=== PATIENT | male | born 1955 | race Caucasian/White ===

== ENCOUNTER → 2017-11-25 | Outpatient (CLI) | payer OTHER ==
--- NOTE | 2017-11-25 15:40 | BD ---
EXAMINATION TYPE: MG DEXA axial skeleton. DATE OF EXAM: 11/25/2017 COMPARISON: NONE CLINICAL HISTORY: disorder of bone Height: 5'8 Weight: 208 FRAX RISK QUESTIONS: Alcohol (3 or more units per day): no Family History (Parent hip fracture): no Glucocorticoids (More than 3mos): no (Ex: prednisone, prednisolone, methylprednisolone, dexamethasone, and hydrocortisone). History of Fracture in Adulthood: yes Secondary Osteoporosis: 1. Type 1 Diabetes: no 2. Hyperthyroidism: no 3. Menopause before 45: na 4. Malnutrition: no 5. Chronic liver disease: no Rheumatoid Arthritis: no Current Tobacco Use: no RISK FACTORS HISTORY OF: Lost more than 2 inches in height since high school: MEDICATIONS: Additional Medications: see list Additional History: EXAM MEASUREMENTS: Bone mineral densitometry was performed using the [employer] System. Bone mineral density as measured about the Lumbar spine is: ----- L1-L4(G/cm2): 1.380 T Score Values are as follows: ----- L2: 1.6 ----- L3: 1.7 ----- L4: 2.7 ----- L1-L4:1.7 Bone mineral density about the R hip (g/cm2): 1.087 Bone mineral density about the L hip (g/cm2): 1.104 T Score values are as follows: -----R Neck: 0.4 -----L Neck: 0.5 -----R Total: 1.4 -----L Total: 1.2 IMPRESSION: Normal (Values between +1 and -1 indicate normal bone mass). Consider repeating this study in 5 year s or sooner if there is some new clinical indication. NOTE: T-SCORE=SD OF THE YOUNG ADULT MEAN.
== END | disposition home or self-care (01) ==
LOC: RADBDWWP 14:24
PROVIDERS: ATTEND Family Medicine
DX: M89.9 Disorder of bone, unspecified (principal)
CPT/HCPCS: 77080

== ENCOUNTER → 2019-07-29 | Outpatient (CLI) | payer BC ==
[2019-07-29 18:38] LABS: African American GFR (CKD) 66.8 (60.0-200.0); Anion Gap 10.1 mmol/L (4.00-12.00); BUN/Creat Ratio 11.54 Ratio (12.00-20.00); Calcium 9.9 mg/dL (8.7-10.3); Carbon Dioxide 28.9 mmol/L (21.6-31.8); Potassium 5.4 mmol/L (3.5-5.5)
== END | disposition home or self-care (01) ==
LOC: LABWHC1 14:35
PROVIDERS: ATTEND Nurse Practitioner
DX: Z48.812 Encounter for surgical aftercare following surgery on the circulatory system (principal); Z95.1 Presence of aortocoronary bypass graft
CPT/HCPCS: 36415; 80048

== ENCOUNTER → 2020-12-11 | Outpatient (CLI) | payer MEDICARE, BC ==
--- NOTE | 2020-12-11 17:36 | CONS ---
CONSULTATION REASON FOR CONSULTATION: Sleep apnea. Jorje is 65. He has been well known to me regarding his obstructive sleep apnea. The patient was diagnosed more than 7 years ago and the patient is using a [employer]Med [employer] S9 series which is set at a pressure of 11 cm of water. His baseline AHI was 20, consistent with moderate to severe disease, and he is using a Quattro Air full-face mask. Over the past 5 years the patient has undergone coronary artery bypass surgery at [facility], and the surgery went fine without any complications. No stroke. No atrial fibrillation. He continues to use his CPAP. He is in need of supplies. He is also interested in updating his CPAP unit. He is going to bed around 11 p.m., waking up at 7 a.m. in the morning. No major hypersomnia or sleepiness during the day. He drinks around 3 cups of coffee in the morning. His weight has been stable, probably slightly down compared to his original weight back in 2015. He has been averaging around 8 to 8-1/2 hours of sleep. No nighttime chest pain, palpitations, shortness of breath. No nausea or vomiting. No heartburn. No palpitations. No anxiety or panic attacks. PAST MEDICAL HISTORY: 1. Coronary artery disease with previous bypass surgery. 2. Obstructive sleep apnea with details discussed above. 3. Epilepsy. 4. Diabetes mellitus. 5. Acid reflux. 6. Lechuga's esophagus. PAST SURGICAL HISTORY: Past surgical history includes EGD, coronary artery bypass surgery, colonoscopy, hernia repair on the right, hemorrhoidectomy, vasectomy, resection of a pilonidal cyst. DRUG ALLERGIES: ESSENTIALLY UNKNOWN. OUTPATIENT MEDICATION LIST: Outpatient medication list includes a combination of multiple vitamins, including vitamin C, vitamin B, vitamin D, tumeric, alpha lipoic acid, calcium, biotin, Senokot, Benefiber and magnesium. He also takes Dilantin 100 mg 1 tablet in the morning and 2 tablets at nighttime, metformin 1000 b.i.d., AcipHex 20 mg once a day, Toujeo insulin 36 units once a day, aspirin 81 mg p.o. daily, Ambien at needed, Lipitor 20 mg p.o. daily, nitroglycerin on a p.r.n. basis, metoprolol 25 mg p.o. daily. SOCIAL HISTORY: Nonsmoker. No history of alcoholism. No history of IV drugs. FAMILY HISTORY: Negative for sleep apnea. His father had coronary artery disease and hypertension. REVIEW OF SYSTEMS: Fourteen-point review of systems was done. Positive findings are all mentioned above in the history of present illness. PHYSICAL EXAMINATION: BP is 147/78, pulse 78, respirations 16, temperature 98.4, saturation 96% on room air. Height is 5 feet 8 inches, weight 219. Neck size is 16 inches. GENERAL APPEARANCE: Calm, comfortable. HEAD: Atraumatic, normocephalic. NECK: Supple. No JVD. No goiter or neck masses. Mallampati class IV. LUNGS: Diminished; otherwise clear. HEART: Heart sounds are regular rate and rhythm. Normal S1, S2. No S3, S4. No murmurs. ABDOMEN: Soft, nontender. No organomegaly. EXTREMITIES: No edema. No cyanosis or clubbing. IMPRESSION: 1. Symptomatic obstructive sleep apnea with an AHI of 20, currently on CPAP pressure of 11. The patient is using an older-generation ResMed S9 series and he using a Quattro Air medium-sized full-face mask. Treatment is successful for now. The patient has a need for a new machine. 2. Coronary artery disease with previous bypass surgery. 3. Epilepsy. 4. Diabetes mellitus. 5. Acid reflux. 6. Lechuga's esophagus. PLAN: 1. I gave the patient samples of supplies and I gave him the AirFit F10 full-face mask, medium size, as a replacement for his Quattro Air. 2. I am going to order a home sleep study to establish the diagnosis again, and based on that we will proceed with ordering this patient a newer CPAP unit, which will be a newer-generation ResMed AirSense AutoSet. 3. The patient will see me back after obtaining a new CPAP machine for a compliancy check. MMODL / IJN: [id number] /
== END | disposition home or self-care (01) ==
LOC: SLEEP 15:34
PROVIDERS: ATTEND Internal Medicine Critical Care Medicine
DX: G47.33 Obstructive sleep apnea (adult) (pediatric) (principal); I25.10 Atherosclerotic heart disease of native coronary artery without angina pectoris; G40.909 Epilepsy, unspecified, not intractable, without status epilepticus; E11.9 Type 2 diabetes mellitus without complications; K21.9 Gastro-esophageal reflux disease without esophagitis; K22.70 Barrett's esophagus without dysplasia; Z95.1 Presence of aortocoronary bypass graft; Z99.89 Dependence on other enabling machines and devices; Z79.84 Long term (current) use of oral hypoglycemic drugs; Z79.4 Long term (current) use of insulin; Z79.82 Long term (current) use of aspirin
CPT/HCPCS: 99211

== ENCOUNTER → 2021-03-05 | Outpatient (CLI) | payer MEDICARE, BC ==
--- NOTE | 2021-03-05 14:55 | PN ---
PROGRESS NOTE This is a progress note from the sleep center. This is a 65-year-old male patient with known history of obstructive sleep apnea with an AHI of 20. The patient has been on APAP pressures of 5 and 15 cm of water. The patient is coming in for a followup. The patient is very compliant with CPAP machine. He has been averaging around 8.7 hours of CPAP use per night and the P90 pressure is around 13.5. He utilizes his machine every night and his compliancy for more than 4 hours is 100%. Leak is in order of 4 L and his AHI is down to 1.2. The patient is using AirFit F20 medium-sized full-face mask. No complaints. No recent weight gain or weight loss. No hypersomnia or sleepiness. No tiredness or fatigue. No other new complaints otherwise for now. REVIEW OF SYSTEMS: Fourteen-point review of system was done and positive findings are all mentioned above in the history of present illness. PHYSICAL EXAMINATION: VITAL SIGNS: BP is 125/75, pulse 82, respirations 16, weight is 215, temperature 97.2, saturation 96% on room air. GENERAL APPEARANCE: Calm, comfortable. HEAD: Atraumatic, normocephalic. NECK: Supple. No JVD. There is no goiter or neck masses. LUNGS: Clear to auscultation. HEART: Heart sounds are regular rate and rhythm. Normal S1, S2. No S3, S4. No murmurs. ABDOMEN: Soft, nontender. No organomegaly. EXTREMITIES: No edema. No cyanosis or clubbing. IMPRESSION: 1. Obstructive sleep apnea, AHI of 20, currently on a APAP with successful results and clinical response. The patient continues to benefit. 2. Hypersomnia, recovered. PLAN: 1. Keep the patient on same pressure setting. 2. Compliance data shows adequate use. 3. Treatment is effective. 4. Keep the patient on an AirFit F20 medium-sized full-face mask. 5. Activate EPR. 6. Increased temperature of the tubing up with 84 degrees. 7. Set up the humidity up to 4. 8. See me back in a year's time, earlier if needed. No other issues for now. 9. We will continue to follow. MMODL / IJN: [id number] /
== END ==
LOC: SLEEP 13:23
PROVIDERS: ATTEND Internal Medicine Critical Care Medicine
DX: G47.33 Obstructive sleep apnea (adult) (pediatric) (principal)

== ENCOUNTER → 2022-04-29 | Outpatient (CLI) | payer MEDICARE, BC ==
--- NOTE | 2022-04-29 15:53 | P.PN ---
Subjective Progress Note Date: 04/29/22 On today's evaluation of 04/29/2022, seeing this 66-year-old the patient for a follow-up regarding his obstructive sleep apnea. The patient is known to have moderate to severe disease with an AHI of 20. The patient has been maintained on an APAP machine at the pressure minimum of 5 and a maximum of 15. He has a ResMed 10 CPAP unit and the patient is also using an air fit F 20 fullface mask medium size. On today's evaluation, the patient reports that he was doing better off with a fixed pressure. The patient would like to try a fixed pressure than an APAP pressure. I checked the compliance data from his machine. Based on a 30 day compliance evaluation, the patient utilizes machine 26 out of 30 days. The P90 pressure is currently at 9.9. Leak is in order of 0 L per minute and his AHI is down to 1.2. He has lost 2 pounds since his last evaluation. No hypersomnia and sleepiness during the day. No angina. No palpitations pain no chest pain. No hypersomnia or sleepiness. No cardiac arrhythmias. His been very compliant to CPAP therapy over the years. He is known to have CAD and is taking beta blockers. No nightmares. He has some chronic fatigue related to use of beta blockers and this got worse after the dose of the metoprolol was increased to 50 mg XL on a daily basis. Objective - Exam BP is 143/83, pulse is 83, respirations 16, temperature 97.5, weight is 212, body mass index is 31.3, Omaha score is at 6, oxygen saturation 94% on room air oxygen. The patient appeared well nourished and normally developed. Vital signs as documented. Head exam is unremarkable. No scleral icterus or corneal arcus noted. Neck is without jugular venous distension, thyromegaly, or carotid bruits. Carotid upstrokes are brisk bilaterally. Lungs are clear to auscultation and percussion. Cardiac exam reveals the PMI to be normally sized and situated. Rhythm is regular. First and second heart sounds normal. No murmurs, rubs or gallops. Abdominal exam reveals normal bowel sounds, no masses, no organomegaly and no aortic enlargement. Extremities are nonedematous and both femoral and pedal pulses are normal.Examination of the skin revealed no evidence of significant rashes, suspicious appearing nevi or other concerning lesion s.Neurologically, the patient is awake and alert and the patient does not have any focal neurological deficit. Cranial nerves are essentially intact. Assessment and Plan Plan: Obstructive sleep apnea moderate to severe AHI of 20, currently on APAP with excellent clinical response and compliance. The patient wants to go back to a fixed pressure. hypersomnia improved chronic fatigue could be related to beta jonny use Coronary artery disease with previous bypass surgery Hypertension Diabetes mellitus Hyperlipidemia History of seizure disorder maintained on Dilantin on outpatient basis History of Lechuga's esophagus along with acid reflux Plan Was switched this patient to a regular fixed CPAP pressure of 11 cm of water Keep the same mask interface Encourage weight loss Other compliance evaluation in one year Refill through [facility] No other active issues for now. Hemodynamically stable. Cardiac breast cancer status is also stable. Suggest lowering the beta jonny dose which is probably contributing to his chronic fatigue We'll follow
== END ==
LOC: SLEEP 15:19
PROVIDERS: ATTEND Internal Medicine Critical Care Medicine
DX: G47.33 Obstructive sleep apnea (adult) (pediatric) (principal); I25.10 Atherosclerotic heart disease of native coronary artery without angina pectoris; I10 Essential (primary) hypertension; E11.9 Type 2 diabetes mellitus without complications; E78.5 Hyperlipidemia, unspecified; K21.9 Gastro-esophageal reflux disease without esophagitis; G40.909 Epilepsy, unspecified, not intractable, without status epilepticus; Z95.1 Presence of aortocoronary bypass graft; Z79.899 Other long term (current) drug therapy; Z87.19 Personal history of other diseases of the digestive system

== ENCOUNTER → 2023-04-21 | Outpatient (CLI) | payer MEDICARE, BC ==
--- NOTE | 2023-04-21 16:39 | P.PN ---
Progress Note - Text Progress Note Date: 04/21/23 This is a 67-year-old male patient was coming in for annual checkup regarding his obstructive sleep apnea treatment. The patient is 67-year-old old and the patient is known to have was a with an AHI of 20 consistent with moderate to severe SAAD. The patient is utilizing a ResMed 10 CPAP unit and is currently utilizing the machine in the CPAP at a pressure of 11 cm of water cm of water. He is doing well. His weight has remained stable. Is using the air fit F 20 fullface mask medium size. He was having some daytime hypersomnia and sleepiness and fatigue and for that reason he was started on modafinil by his primary care physician. This increase his level of alertness. For now, based on the compliance data on the machine, the patient has been averaging 8.1 hours of CPAP use per night and his usage of the machine for more than 4 hours of 100%. Average pressure delivered by the machines around 10.9 cm of water with a leak of 2 L/m. No major hypersomnia or sleepiness at this point. He is able to drive long distances without having to fall asleep. His current Romance score is at 9. His cardiac vascular status is also stable BP is 149/76 with a pulse of 82 and the respiration of 16 and a temperature of 97.3 and oxygen saturations 97%. Weight is 211 pounds. The patient appeared well nourished and normally developed. Vital signs as documented. Head exam is unremarkable. No scleral icterus or corneal arcus noted. Neck is without jugular venous distension, thyromegaly, or carotid bruits. Carotid upstrokes are brisk bilaterally. Lungs are clear to auscultation and percussion. Cardiac exam reveals the PMI to be normally sized and situated. Rhythm is regular. First and second heart sounds normal. No murmurs, rubs or gallops. Abdominal exam reveals normal bowel sounds, no masses, no organomegaly and no aortic enlargement. Extremities are nonedematous and both femoral and pedal pulses are normal.Examination of the skin revealed no evidence of significant rashes, suspicious appearing nevi or other concerning lesions.Neurologically, the patient is awake and alert and the patient does not have any focal neurological deficit. Cranial nerves are essentially intact. Impression Obstructive sleep apnea with an AHI of 20, undergoing successful CPAP therapy at a pressure of 11 cm of water Chronic hypersomnia improved while being on APAP therapy in combination with modafinil 200 mg to be taken in the morning 1 tablet a day Chronic fatigue, improved Chronic anxiety/depression maintained on citalopram Hypertension Diabetes mellitus type 2 Hyperlipidemia Seizure disorder maintain on Dilantin History of Lechuga's esophagus History of acid reflux Plan Continue CPAP therapy with the same mask interface. The patient will be kept on the same treatment. His machine is functional. Continue Provigil for daytime stimulation. No major side effects related to the treatment. Refills will be given and the patient will see her back in one year's time and follow-up.
== END ==
LOC: SLEEP 15:33
PROVIDERS: ATTEND Internal Medicine Critical Care Medicine
DX: G47.33 Obstructive sleep apnea (adult) (pediatric) (principal); G93.39 Other post infection and related fatigue syndromes; G40.909 Epilepsy, unspecified, not intractable, without status epilepticus; E78.5 Hyperlipidemia, unspecified; E11.9 Type 2 diabetes mellitus without complications; I10 Essential (primary) hypertension; F41.8 Other specified anxiety disorders; K21.9 Gastro-esophageal reflux disease without esophagitis; K22.70 Barrett's esophagus without dysplasia; Z99.89 Dependence on other enabling machines and devices
CPT/HCPCS: 99212